=== PATIENT | male | born 1995 | race Two or more races ===

== ENCOUNTER 2021-03-18 10:26 | Inpatient (IN) | payer OTHER ==
[~2021-03-18] VITALS: Ht 180.3 cm; Wt 81.0 kg
[2021-03-18 10:44] LABS: COVID AG,FIA SOURCE NASOPHARYNGEAL
[2021-03-18] MEDS ORDERED: MAGNESIUM HYDROXIDE SUSPENSION 30 ML UDCUP PO PRN (11:30)
[2021-03-18] MEDS ORDERED: ZOLPIDEM TARTRATE 5 MG TABLET PO PRN (11:30)
[2021-03-18 12:06] VITALS: BP 131/81
[2021-03-18] MEDS ORDERED: NICOTINE 7 MG/24 HOUR PATCH TD PRN (13:00)
[2021-03-18 20:00] VITALS: BP 134/66
[2021-03-19 04:20] VITALS: BP 119/85
[2021-03-19 08:13] VITALS: BP 131/95
[2021-03-19 11:39] LABS: BASOPHILS % (AUTO) 0.3 % (0.0-2.0); EOSINOPHILS % (AUTO) 2.5 % (1.0-6.0); HEMATOCRIT 47.8 % (41-53); HEMOGLOBIN 15.9 g/dL (13.5-17.5); LYMPHOCYTES # (AUTO) 2.1 K/uL (1.0-4.8); LYMPHOCYTES % (AUTO) 31.3 % (22.0-44.0); MEAN CORPUSCULAR HEMOGLOBIN 30.2 pg (26.0-34.0); MEAN CORPUSCULAR HGB CONC 33.3 G/dL (31.0-37.0); MEAN CORPUSCULAR VOLUME 91 fL (80-100); MONOCYTES # (AUTO) 0.6 K/uL (0.1-1.0); MONOCYTES % (AUTO) 9.5 % (2.0-9.0); NEUTROPHILS # (AUTO) 3.8 K/uL (1.8-7.7); NEUTROPHILS % (AUTO) 56.4 % (40.0-70.0); PLATELET COUNT (AUTO) 286 K/uL (150-450); RED BLOOD CELL COUNT(AUTO) 5.27 MIL/uL (4.50-5.90); RED CELL DISTRIBUTION WIDTH 13.2 % (11.5-14.5)
[2021-03-19 11:59] LABS: ALANINE AMINOTRANSFERASE 69 U/L (12-78); ALKALINE PHOSPHATASE 83 U/L (46-116); ANION GAP 11 mmol/L (8-16); ASPARTATE AMINOTRANSFERASE 25 U/L (15-37); BILIRUBIN,TOTAL 0.6 mg/dL (0.1-1.0); CALCIUM, TOTAL 9.2 mg/dL (8.8-10.5); CARBON DIOXIDE 26 mmol/L (22-29); CHLORIDE 102 mmol/L (98-107); CREATININE 0.66 mg/dL (0.60-1.30); GLOMERULAR FILTR. RATE CALC > 60 mL/min (>60); GLUCOSE,RANDOM 90 mg/dL (70-110); POTASSIUM 3.7 mmol/L (3.5-5.1); SODIUM SERUM 139 mmol/L (136-145); TOTAL PROTEIN, SERUM 7.6 g/dL (6.4-8.2); UREA NITROGEN, BLOOD 11 mg/dL (7-18)
[2021-03-19 12:51] VITALS: BP 130/89
[2021-03-19 15:52] VITALS: BP 133/73
[2021-03-19] MEDS: ACETAMINOPHEN 325 MG TABLET PO PRN (19:59)
[2021-03-19 20:29] VITALS: BP 125/76
[2021-03-20 04:51] VITALS: BP 127/60
[2021-03-20 07:59] VITALS: BP 123/66
[2021-03-20 15:07] VITALS: BP 130/78
[2021-03-20 19:45] VITALS: BP 129/85
[2021-03-20] MEDS: ACETAMINOPHEN 325 MG TABLET PO PRN (19:55)
[2021-03-21 04:15] VITALS: BP 138/79
[2021-03-21 08:37] VITALS: BP 134/65
[2021-03-21] MEDS: ACETAMINOPHEN 325 MG TABLET PO PRN (18:03)
[2021-03-21 20:30] VITALS: BP 130/72
[2021-03-22 04:45] VITALS: BP 117/70
[2021-03-22 08:00] VITALS: BP 131/63
[2021-03-22] MEDS ORDERED: MOM30 PO (09:45)
[2021-03-22] MEDS ORDERED: ACET-2247 PO (09:45)
== END 2021-03-22 11:05 | DRG 204 ==
LOC: EDUNIT# 10:26 → EMS 10:28 → 6S 11:13
PROVIDERS: ADMIT Internal Medicine; ATTEND Internal Medicine
DX: R05 Cough (principal); Z20.822 Contact with and (suspected) exposure to COVID-19; F17.210 Nicotine dependence, cigarettes, uncomplicated; F12.90 Cannabis use, unspecified, uncomplicated; Z79.899 Other long term (current) drug therapy
CPT/HCPCS: 71045; 80053; 85025; 99285; 36415-L1; 36415-TC; U0003